=== PATIENT | female | born 1950 | race Caucasian/White ===

== ENCOUNTER 2017-01-09 16:10 | Emergency (ER) | payer MEDICARE, OTHER ==
--- NOTE | 2017-01-09 18:03 | RAD ---
INDICATION: Laceration to the bridge of the nose TECHNIQUE: 3 views of the nasal bones were obtained including lateral and Esposito views. FINDINGS: No fracture is seen. Paranasal sinuses appear clear by radiographic standards. IMPRESSION: No evidence of acute fracture.
--- NOTE | 2017-01-09 18:06 | UC ---
Epistaxis Nasal HPI - HPI Summary HPI Summary: PT WAS WALKING IN THE [facility] [employer] [facility] TODAY WHEN SHE TRIPPED ON A ROCK AND FACE PLANTED ON THE STONE PAVEMENT. NOSE IS DEVIATED TO THE LEFT. NO LOC. NO BLEEDING. - History of Current Complaint Chief Complaint: UCTrauma Stated Complaint: NOSE INJURY Time Seen by Provider: 01/09/17 17:17 Hx Obtained From: Patient Onset/Duration: Sudden Onset, Lasting Hours, Still Present Timing: Constant Severity Initially: Moderate Severity Currently: Moderate Pain Intensity: 1 Pain Scale Used: 0-10 Numeric Aggravating Factor(s): Nasal Trauma Associated Signs And Symptoms: Positive: Bruising - Allergies/Home Medications Allergies/Adverse Reactions: Allergies Allergy/AdvReac Type Severity Reaction Status Date / Time Acetaminophen [From Vicodin] Allergy Vomiting Verified 01/09/17 16:15 Codeine Allergy Vomiting Verified 01/09/17 16:15 Hydrocodone [From Vicodin] Allergy Vomiting Verified 01/09/17 16:15 Meperidine [From Demerol HCl] Allergy VOMITING Verified 01/09/17 16:15 AND CONFUSION Morphine Allergy Vomiting Verified 01/09/17 16:15 CATGUT SUTURE Allergy FLESH Uncoded 01/09/17 16:15 ERODES FROM SUTURE PMH/Surg Hx/FS Hx/Imm Hx Endocrine History: Diabetes, Hypothyroidism - Surgical History Surgical History: Yes Surgery Procedure, Year, and Place: 2006 BILATERAL KNEE REPLACEMENTS, [facility]. 1979 OSTEOCHONDROMA - [place],. 2009 PLASTIC SURGERY - EXCESSIVE SKIN REMOVAL FROM SIGNIFICANT WEIGHT LOSS, [facility]; - Family History Known Family History: Positive: Diabetes - Social History Alcohol Use: Weekly Alcohol Amount: 1-2 DRINKS/WEEK Substance Use Type: None Smoking Status (MU): Never Smoked Tobacco Have You Smoked in the Last Year: No - Immunization History Most Recent Tetanus Shot: unk Review of Systems Constitutional: Negative Skin: Bruising ENT: Other - NASAL TRAUMA, PAIN, DEFORMITY Respiratory: Negative Cardiovascular: Negative Gastrointestinal: Negative All Other Systems Reviewed And Are Negative: Yes Physical Exam Triage Information Reviewed: Yes Appearance: Well-Appearing, No Pain Distress, Well-Nourished Vital Signs: Initial Vital Signs Temp 98 F 01/09/17 16:16 Pulse 100 01/09/17 16:16 Resp 17 01/09/17 16:16 Pulse Ox 99 01/09/17 16:16 Vital Signs Reviewed: Yes Eyes: Positive: Conjunctiva Clear ENT: Positive: Hearing grossly normal, Pharynx normal, TMs normal, Other: - TENDERNESS LIMITED TO BRIDGE OF NOSE. NO SEPTAL HEMATOMA. NO OBSTRUCTION IN NARES. DEVIATION TO THE LEFT Neck: Positive: Supple Respiratory: Positive: No respiratory distress, No accessory muscle use Cardiovascular: Positive: Pulses Normal Abdomen Description: Positive: Soft Musculoskeletal: Positive: No Edema Neurological: Positive: Alert Psychological: Positive: Age Appropriate Behavior Skin: Positive: Other - BRUISING AND ABRASIONS OVER NOSE. Negative: rashes Diagnostics - Radiology NASAL BONES XRAYS Xray Interpretation: Positive (See Comments) - NONDISPLACED FRACTURE Radiology Interpretation Completed By: Radiologist Epistaxis Nasal Course/Dx - Differential Dx/Diagnosis Provider Diagnoses: NONDISPLACED NASAL FRACTURE Discharge - Discharge Plan Condition: Stable Disposition: HOME Patient Education Materials: Nasal Fracture (ED) Referrals: Parrish Saleh MD [Primary Care Provider] - If Needed Additional Instructions: XRAY CONFIRMS NASAL FRACTURE. FOLLOW-UP WITH ENT BELOW. [facility] [place] AND [address] [facility] [phone] GO TO THE ER WITHOUT FAIL IF YOU DEVELOP INABILITY TO BREATHE THROUGH YOUR NOSE , WORSENING PAIN, BLEEDING OR ANY OTHER CONCERNING SYMPTOMS.
== END 2017-01-09 18:10 | disposition home or self-care (01) ==
LOC: UCEAST 16:10
DX: S02.2XXA Fracture of nasal bones, initial encounter for closed fracture (principal); W01.0XXA Fall on same level from slipping, tripping and stumbling without subsequent striking against object, initial encounter; Y92.9 Unspecified place or not applicable; Z88.6 Allergy status to analgesic agent; Z88.5 Allergy status to narcotic agent; E11.9 Type 2 diabetes mellitus without complications
CPT/HCPCS: 70160; 99211; G0463

== ENCOUNTER 2022-04-06 14:04 | Inpatient (IN) ==
[2022-04-06] MEDS ORDERED: cefTRIAXone 1 gm/50 mL D5W 1 GM/50 ML BAG IV ONE (14:16)
[2022-04-06] MEDS ORDERED: NS 0.9% 1000 ml BAG 1,000 ML IV ONE ×2 (14:16→17:00)
[2022-04-06 14:51] LABS: PO2 Arterial 55 mmHg (80-100)
[2022-04-06 14:56] LABS: PCO2 Arterial <20 mmHg (35-45)
[2022-04-06 15:54] LABS: Hematocrit 41 % (35-47); Hemoglobin 13.6 g/dL (12.0-16.0); Mean Corpuscular HGB Conc 34 g/dL (31-36); Mean Corpuscular Hemoglobin 30 pg (27-31); Mean Corpuscular Volume 89 fL (80-97); Mean Platelet Volume 8.4 fL (7.4-10.4); Platelet Count 278 10^3/uL (150-450); Red Blood Count 4.56 10^6 /uL (3.70-4.87); Red Cell Distribution Width 15 % (10-15); White Blood Count 4.6 10^3/uL (3.5-10.8)
[2022-04-06 16:16] LABS: High Sens Troponin Baseline 67 pg/mL (<15)
[2022-04-06] MEDS ORDERED: Adenosine 3 MG/ML 2 ml VIAL (6 mg) ONE (16:18)
[2022-04-06 16:32] LABS: ALT 46 U/L (7-52); AST 58 U/L (13-39); Albumin 3.7 g/dL (3.2-5.2); Albumin/Globulin Ratio 1.2 (1-3); Alcohol, S < 13 mg/dL (<13); Alkaline Phosphatase 58 U/L (35-149); Anion Gap 20 mmol/L (2-11); Blood Urea Nitrogen 38 mg/dL (6-24); CO2 Carbon Dioxide 17 mmol/L (22-32); Calcium 11.1 mg/dL (8.6-10.3); Chloride 101 mmol/L (101-111); Creatine Kinase 1058 U/L (10-223); Globulin 3.1 g/dL (2-4); Glucose 181 mg/dL (70-100); Potassium 4.3 mmol/L (3.5-5.0); Sodium 138 mmol/L (135-145); Total Protein 6.8 g/dL (6.4-8.9); eGFR CKD-EPI 68.4 (>60)
[2022-04-06 16:40] LABS: TSH Ultra Thyroid Stim Horm 0.96 mcIU/mL (0.34-5.60)
[2022-04-06] MEDS ORDERED: Succinylcholine 200 mg VIAL 20 mg/ml 10 ml VIAL (200 mg) ONE (16:41)
[2022-04-06] MEDS ORDERED: Rocuronium 50 mg VIAL 10 mg/ml 5 ml VIAL (50 mg) ONE (16:41)
[2022-04-06] MEDS ORDERED: Propofol 10 mg/ml 100 ML BTL 100 ML ONE (16:41)
[2022-04-06] MEDS ORDERED: Etomidate 40 mg/20 ml (2 MG/ML) 20 ml VIAL (40 mg) ONE (16:50)
[2022-04-06] MEDS ORDERED: Etomidate 20 mg/10 ml 2 MG/ML 10 ml VIAL IV ONE (16:59)
[2022-04-06] MEDS ORDERED: Succinylcholine 200 mg VIAL 20 mg/ml 10 ml VIAL (200 mg) IV ONE (17:00)
[2022-04-06] MEDS: Propofol 10 mg/ml 100 ML BTL 100 ML IV SCH ×2 (17:00→22:15)
[2022-04-06] MEDS ORDERED: fentaNYL 100 mcg/2 ml 50 MCG/ML VIAL IV SLOW PU ONE (17:23)
[2022-04-06 17:27] LABS: Platelet Morphology Large; Polychromasia 1+; Toxic Granulation 1+
[2022-04-06] MEDS ORDERED: Iodixanol (CONTRAST) 320 MG/ML 100 ML SDV IV ONE (17:30)
[2022-04-06] MEDS ORDERED: Lactated Ringers 1000 ml BAG 1,000 ML IV ONE (17:30)
[2022-04-06 17:31] LABS: ABS Lymphocytes 0.4 10^3/ul (1.0-4.8); ABS Monocytes 0.2 10^3/ul (0-0.8); Lymphocyte % 8.2 %; Nucleated Red Blood Cells % 0.1
[2022-04-06] MEDS ORDERED: Dextrose 50% Syringe 50 ml 25 GM/50 ML SYRINGE IV PUSH PRN (17:34)
[2022-04-06 17:44] LABS: INR 1.38 (0.88-1.18)
[2022-04-06] MEDS ORDERED: Amiodarone IV 150 mg/3 ml VIAL ONE (17:53)
[2022-04-06] MEDS ORDERED: Digoxin IV 0.5 MG/2 ML AMP (0.25 MG/ML) ONE (17:54)
[2022-04-06] MEDS ORDERED: Digoxin IV 0.5 MG/2 ML AMP (0.25 MG/ML) IV SLOW PU ONE (17:59)
[2022-04-06 18:01] LABS: High Sensitivity Troponin 1 Hr 78 pg/mL (<15)
[2022-04-06] MEDS: Acetaminophen IV 1 GM/100ML 1,000 MG/100 ML BAG IV PRN (21:04)
[2022-04-06] MEDS: Chlorhexidine MOUTHWASH 0.12% 15 ML UDC TOPICAL SCH ×2 (21:28→22:47)
[2022-04-06] MEDS: Pantoprazole VIAL 40 MG VIAL IV SCH (21:37)
[2022-04-06] MEDS: fentaNYL INFUSION 50 mcg/mL VL 2,500 MCG/50 ML VIAL IV SCH (21:44)
[2022-04-06 21:45] LABS: Urine Appearance Clear; Urine Bilirubin 1+ (Small) (Negative); Urine Color Yellow; Urine Glucose 3+ (>=1000 mg/dL) (Negative); Urine Ketones 2+ (40mg/dL) (Negative); Urine Protein 1+ (30 mg/dL) (Negative); Urine pH 5.5 (5.0-9.0)
[2022-04-06 21:46] LABS: Urine Nitrite Negative (Negative); Urine Urobilinogen 0.2 (Negative) (Negative)
[2022-04-06 21:51] LABS: Urine Bacteria Absent (Absent); Urine Red Blood Cell Trace(0-2/hpf) (Absent); Urine Squamous Epithelial Cell Present (Absent); Urine White Blood Cell Trace(0-5/hpf) (Absent); Urine Yeast Present (Absent)
[2022-04-06] MEDS: Enoxaparin 40 MG/0.4 ML SYR SUBCUT SCH (22:24)
[2022-04-06] MEDS: Lactated Ringers 1000 ml BAG 1,000 ML IV SCH (22:42)
[2022-04-06] MEDS: Azithromycin 500 mg/250 ml NS 500 MG/250 ML BAG IVPB SCH (22:44)
[2022-04-06] MEDS: Oseltamivir SUSP ORALSYR 6 MG/ML PO SCH (23:09)
[2022-04-07 02:36] LABS: PCO2 Arterial 28 mmHg (35-45); PO2 Arterial 114 mmHg (80-100)
[2022-04-07] MEDS: Chlorhexidine MOUTHWASH 0.12% 15 ML UDC TOPICAL SCH ×6 (02:54→21:21)
[2022-04-07] MEDS: Propofol 10 mg/ml 100 ML BTL 100 ML IV SCH ×4 (04:21→20:35)
[2022-04-07 04:49] LABS: Hematocrit 34 % (35-47); Hemoglobin 11.3 g/dL (12.0-16.0); Mean Corpuscular HGB Conc 34 g/dL (31-36); Mean Corpuscular Hemoglobin 30 pg (27-31); Mean Corpuscular Volume 89 fL (80-97); Mean Platelet Volume 8.6 fL (7.4-10.4); Platelet Count 204 10^3/uL (150-450); Red Blood Count 3.78 10^6 /uL (3.70-4.87); Red Cell Distribution Width 14 % (10-15); White Blood Count 2.7 10^3/uL (3.5-10.8)
[2022-04-07 05:06] LABS: ABS Lymphocytes 0.4 10^3/ul (1.0-4.8); ABS Monocytes 0.1 10^3/ul (0-0.8); ABS Neutrophils 2.2 10^3/ul (1.5-7.7); Eosinophil % 0.1 %; Lymphocyte % 14.7 %
[2022-04-07 05:23] LABS: INR 1.34 (0.88-1.18)
[2022-04-07 05:39] LABS: Blood Urea Nitrogen 32 mg/dL (6-24); CO2 Carbon Dioxide 20 mmol/L (22-32); Calcium 9.4 mg/dL (8.6-10.3); Chloride 107 mmol/L (101-111); Glucose 132 mg/dL (70-100); Magnesium 1.7 mg/dL (1.9-2.7); Sodium 137 mmol/L (135-145); eGFR CKD-EPI 86.8 (>60)
[2022-04-07 05:44] LABS: Anion Gap 10 mmol/L (2-11)
[2022-04-07] MEDS: Acetaminophen IV 1 GM/100ML 1,000 MG/100 ML BAG IV PRN ×2 (06:11→16:42)
[2022-04-07] MEDS: Lactated Ringers 1000 ml BAG 1,000 ML IV SCH ×3 (06:12→15:38)
[2022-04-07] MEDS ORDERED: KCL 10 MEQ/50 ML IVPREMIX 10 MEQ/50 ML BAG IV ONE (08:15)
[2022-04-07] MEDS ORDERED: Perflutren Lipid Microsphere 3 ML VIAL ONE (08:35)
[2022-04-07] MEDS: Enoxaparin 40 MG/0.4 ML SYR SUBCUT SCH (08:57)
[2022-04-07] MEDS: Oseltamivir SUSP ORALSYR 6 MG/ML PO SCH ×2 (08:58→21:11)
[2022-04-07] MEDS ORDERED: Magnesium Sulfate IV 3 GM in NS 0.9% 100 ml BAG 100 ML IVPB ONE (09:00)
[2022-04-07] MEDS ORDERED: cefTRIAXone 1 gm/50 mL D5W 1 GM/50 ML BAG IV SCH (16:00)
[2022-04-07] MEDS ORDERED: cefTRIAXone 1 gm/50 mL D5W 1 GM/50 ML BAG IV ONE (17:30)
[2022-04-07] MEDS: Pantoprazole VIAL 40 MG VIAL IV SCH (17:49)
[2022-04-07] MEDS: Azithromycin 500 mg/250 ml NS 500 MG/250 ML BAG IVPB SCH (18:00)
[2022-04-07] MEDS: Enoxaparin 80 MG/0.8 ML SYR SUBCUT SCH (20:35)
[2022-04-07] MEDS ORDERED: Enoxaparin 40 MG/0.4 ML SYR SUBCUT SCH (21:00)
[2022-04-08] MEDS: Lactated Ringers 1000 ml BAG 1,000 ML IV SCH (00:25)
[2022-04-08] MEDS: Acetaminophen IV 1 GM/100ML 1,000 MG/100 ML BAG IV PRN ×3 (00:32→20:06)
[2022-04-08] MEDS ORDERED: fentaNYL 100 mcg/2 ml 50 MCG/ML VIAL IV SLOW PU ONE (00:59)
[2022-04-08] MEDS ORDERED: Furosemide 40 mg/4 ml IV VIAL ONE (01:00)
[2022-04-08] MEDS ORDERED: fentaNYL 100 mcg/2 ml 50 MCG/ML VIAL ONE (01:00)
[2022-04-08] MEDS: Furosemide 40 mg/4 ml IV VIAL IV ONE ×2 (01:06→01:07)
[2022-04-08] MEDS ORDERED: Midazolam 2 mg/2 ml VIAL 1 mg/ml 2 ml VIAL (2 mg) ONE (01:41)
[2022-04-08 02:33] LABS: Hematocrit 33 % (35-47); Mean Corpuscular HGB Conc 34 g/dL (31-36); Mean Corpuscular Hemoglobin 30 pg (27-31); Mean Corpuscular Volume 88 fL (80-97); Mean Platelet Volume 9.4 fL (7.4-10.4); Platelet Count 201 10^3/uL (150-450); Red Blood Count 3.72 10^6 /uL (3.70-4.87); Red Cell Distribution Width 14 % (10-15); White Blood Count 3.2 10^3/uL (3.5-10.8)
[2022-04-08 02:37] LABS: ABS Lymphocytes 0.5 10^3/ul (1.0-4.8); ABS Monocytes 0.1 10^3/ul (0-0.8); ABS Neutrophils 2.7 10^3/ul (1.5-7.7); Nucleated Red Blood Cells % 0.1
[2022-04-08] MEDS: Chlorhexidine MOUTHWASH 0.12% 15 ML UDC TOPICAL SCH ×6 (02:42→22:17)
[2022-04-08 02:50] LABS: Calcium 10.1 mg/dL (8.6-10.3); Magnesium 1.9 mg/dL (1.9-2.7); Potassium 3.5 mmol/L (3.5-5.0); eGFR CKD-EPI 95.5 (>60)
[2022-04-08] MEDS ORDERED: Magnesium Sulfate 2 gm BAG 2 GM/50 ML BAG IVPB ONE (02:54)
[2022-04-08] MEDS: KCL 20 MEQ/100 ML IVPREMIX 20 MEQ/100 ML BAG IV SCH ×3 (03:35→08:00)
[2022-04-08] MEDS: Propofol 10 mg/ml 100 ML BTL 100 ML IV SCH ×5 (03:38→23:48)
[2022-04-08 08:05] LABS: Hematocrit 32 % (35-47); Hemoglobin 11.3 g/dL (12.0-16.0); Mean Corpuscular HGB Conc 35 g/dL (31-36); Mean Corpuscular Hemoglobin 31 pg (27-31); Mean Corpuscular Volume 89 fL (80-97); Mean Platelet Volume 8.6 fL (7.4-10.4); Platelet Count 199 10^3/uL (150-450); Red Blood Count 3.67 10^6 /uL (3.70-4.87); Red Cell Distribution Width 15 % (10-15); White Blood Count 4.8 10^3/uL (3.5-10.8)
[2022-04-08 08:46] LABS: Blood Urea Nitrogen 23 mg/dL (6-24); CO2 Carbon Dioxide 28 mmol/L (22-32); Calcium 10.2 mg/dL (8.6-10.3); Chloride 105 mmol/L (101-111); Glucose 166 mg/dL (70-100); Magnesium 2.3 mg/dL (1.9-2.7); Sodium 140 mmol/L (135-145)
[2022-04-08] MEDS: Enoxaparin 80 MG/0.8 ML SYR SUBCUT SCH ×2 (08:52→20:06)
[2022-04-08 09:00] LABS: Anion Gap 7 mmol/L (2-11)
[2022-04-08 09:53] LABS: ABS Eosinophils 0.1 10^3/ul (0-0.6); ABS Lymphocytes 0.5 10^3/ul (1.0-4.8); ABS Neutrophils 4.2 10^3/ul (1.5-7.7); Eosinophil % 1.4 %; Nucleated Red Blood Cells % 0.1
[2022-04-08] MEDS: Oseltamivir SUSP ORALSYR 6 MG/ML PO SCH ×2 (09:55→20:06)
[2022-04-08] MEDS ORDERED: Midazolam 5 mg/5 ml VIAL 1 mg/ml 5 ml VIAL (5 mg) IV SLOW PU ONE (12:15)
[2022-04-08] MEDS ORDERED: Midazolam 5 mg/5 ml VIAL 1 mg/ml 5 ml VIAL (5 mg) ONE (12:16)
[2022-04-08] MEDS: cefTRIAXone 2 gm/50 mL D5W 2 GM/50 ML BAG IV SCH (17:09)
[2022-04-08] MEDS: Pantoprazole VIAL 40 MG VIAL IV SCH (17:11)
[2022-04-08] MEDS: Azithromycin 500 mg/250 ml NS 500 MG/250 ML BAG IVPB SCH (17:20)
[2022-04-09] MEDS: Chlorhexidine MOUTHWASH 0.12% 15 ML UDC TOPICAL SCH ×6 (02:24→21:40)
[2022-04-09 04:52] LABS: ABS Lymphocytes 0.7 10^3/ul (1.0-4.8); ABS Monocytes 0.3 10^3/ul (0-0.8); ABS Neutrophils 6.6 10^3/ul (1.5-7.7); Eosinophil % 0.5 %; Hematocrit 31 % (35-47); Hemoglobin 10.9 g/dL (12.0-16.0); Lymphocyte % 9.4 %; Mean Corpuscular HGB Conc 35 g/dL (31-36); Mean Corpuscular Hemoglobin 30 pg (27-31); Mean Corpuscular Volume 88 fL (80-97); Mean Platelet Volume 8.8 fL (7.4-10.4); Platelet Count 203 10^3/uL (150-450); Red Blood Count 3.58 10^6 /uL (3.70-4.87); Red Cell Distribution Width 15 % (10-15); White Blood Count 7.6 10^3/uL (3.5-10.8)
[2022-04-09 05:45] LABS: Magnesium 1.8 mg/dL (1.9-2.7); Potassium 4.2 mmol/L (3.5-5.0); eGFR CKD-EPI 99.5 (>60)
[2022-04-09] MEDS: Propofol 10 mg/ml 100 ML BTL 100 ML IV SCH ×3 (06:28→20:46)
[2022-04-09] MEDS ORDERED: Magnesium Sulfate 2 gm BAG 2 GM/50 ML BAG IVPB ONE (06:41)
[2022-04-09] MEDS: Enoxaparin 80 MG/0.8 ML SYR SUBCUT SCH ×2 (08:15→21:39)
[2022-04-09] MEDS: Oseltamivir SUSP ORALSYR 6 MG/ML PO SCH ×2 (08:15→22:31)
[2022-04-09] MEDS: Acetaminophen IV 1 GM/100ML 1,000 MG/100 ML BAG IV PRN ×2 (08:59→17:21)
[2022-04-09] MEDS ORDERED: NS 0.9% IVPB ONE (09:30)
[2022-04-09] MEDS ORDERED: ZOLEDRONIC ACID IVPB ONE (09:30)
[2022-04-09] MEDS ORDERED: Senna TAB 8.6 mg TAB PO PRN (10:03)
[2022-04-09] MEDS ORDERED: Magnesium Hydroxide LIQ 30 ML UDC PO PRN (10:03)
[2022-04-09] MEDS: Magnesium Hydroxide LIQ 30 ML UDC PO SCH ×3 (10:44→21:56)
[2022-04-09] MEDS: Azithromycin 500 mg/250 ml NS 500 MG/250 ML BAG IVPB SCH (17:27)
[2022-04-09] MEDS: cefTRIAXone 2 gm/50 mL D5W 2 GM/50 ML BAG IV SCH (17:29)
[2022-04-09] MEDS: Pantoprazole VIAL 40 MG VIAL IV SCH (18:08)
[2022-04-09] MEDS: Insulin GLARGINE 100 un/ml 10 ml VIAL SUBCUT SCH (21:27)
[2022-04-10] MEDS: Chlorhexidine MOUTHWASH 0.12% 15 ML UDC TOPICAL SCH ×6 (02:19→21:28)
[2022-04-10 04:02] LABS: Hematocrit 30 % (35-47); Hemoglobin 10.2 g/dL (12.0-16.0); Mean Corpuscular HGB Conc 34 g/dL (31-36); Mean Corpuscular Hemoglobin 30 pg (27-31); Mean Corpuscular Volume 88 fL (80-97); Mean Platelet Volume 8.9 fL (7.4-10.4); Platelet Count 219 10^3/uL (150-450); Red Blood Count 3.42 10^6 /uL (3.70-4.87); Red Cell Distribution Width 15 % (10-15); White Blood Count 11.1 10^3/uL (3.5-10.8)
[2022-04-10 04:27] LABS: Calcium 10.9 mg/dL (8.6-10.3); Magnesium 1.7 mg/dL (1.9-2.7); Potassium 4.2 mmol/L (3.5-5.0)
[2022-04-10] MEDS ORDERED: Magnesium Sulfate IV 3 GM in NS 0.9% 100 ml BAG 100 ML IVPB ONE (04:36)
[2022-04-10 05:15] LABS: Anisocytosis 1+; RBC Morphology Normal (Normal)
[2022-04-10 05:16] LABS: ABS Eosinophils 0.1 10^3/ul (0-0.6); ABS Lymphocytes 0.8 10^3/ul (1.0-4.8); ABS Monocytes 0.6 10^3/ul (0-0.8); ABS Neutrophils 9.6 10^3/ul (1.5-7.7); Eosinophil % 0.6 %; Lymphocyte % 7.1 %
[2022-04-10] MEDS: Propofol 10 mg/ml 100 ML BTL 100 ML IV SCH (07:22)
[2022-04-10] MEDS: Oseltamivir SUSP ORALSYR 6 MG/ML PO SCH ×2 (08:05→20:34)
[2022-04-10] MEDS: Enoxaparin 80 MG/0.8 ML SYR SUBCUT SCH ×2 (08:06→20:33)
[2022-04-10] MEDS: Acetaminophen IV 1 GM/100ML 1,000 MG/100 ML BAG IV PRN ×2 (09:07→15:26)
[2022-04-10] MEDS ORDERED: Furosemide 40 mg/4 ml IV VIAL IV ONE (10:34)
[2022-04-10] MEDS: Fluconazole 400 MG IVPREMIX 400 MG/200 ML BAG IVPB SCH (11:22)
[2022-04-10 11:36] LABS: Albumin 2.2 g/dL (3.2-5.2); Direct Bilirubin 0.1 mg/dL (0.03-0.18); Indirect Bilirubin 0.3 mg/dL (0.3-1.0); Total Bilirubin 0.4 mg/dL (0.2-1.0)
[2022-04-10 11:42] LABS: Albumin/Globulin Ratio 0.9 (1-3); Globulin 2.5 g/dL (2-4); Total Protein 4.7 g/dL (6.4-8.9)
[2022-04-10] MEDS: cefTRIAXone 2 gm/50 mL D5W 2 GM/50 ML BAG IV SCH (17:41)
[2022-04-10] MEDS: Pantoprazole VIAL 40 MG VIAL IV SCH (17:41)
[2022-04-10] MEDS: Azithromycin 500 mg/250 ml NS 500 MG/250 ML BAG IVPB SCH (17:41)
[2022-04-10] MEDS: Nystatin TOP POWDER 15 GM BTL TOPICAL SCH (20:34)
[2022-04-10] MEDS: Insulin GLARGINE 100 un/ml 10 ml VIAL SUBCUT SCH (20:47)
[2022-04-11] MEDS: Chlorhexidine MOUTHWASH 0.12% 15 ML UDC TOPICAL SCH ×6 (01:37→21:17)
[2022-04-11] MEDS: Propofol 10 mg/ml 100 ML BTL 100 ML IV SCH ×2 (02:25→14:41)
[2022-04-11 03:28] LABS: Hematocrit 28 % (35-47); Hemoglobin 9.8 g/dL (12.0-16.0); Mean Corpuscular HGB Conc 35 g/dL (31-36); Mean Corpuscular Hemoglobin 30 pg (27-31); Mean Corpuscular Volume 88 fL (80-97); Mean Platelet Volume 8.7 fL (7.4-10.4); Platelet Count 227 10^3/uL (150-450); Red Blood Count 3.23 10^6 /uL (3.70-4.87); Red Cell Distribution Width 15 % (10-15); White Blood Count 10.8 10^3/uL (3.5-10.8)
[2022-04-11] MEDS: Acetaminophen IV 1 GM/100ML 1,000 MG/100 ML BAG IV PRN ×3 (03:44→22:05)
[2022-04-11 04:05] LABS: Calcium 10.2 mg/dL (8.6-10.3); Magnesium 1.8 mg/dL (1.9-2.7); Potassium 3.9 mmol/L (3.5-5.0)
[2022-04-11 04:18] LABS: ABS Basophils 0.1 10^3/ul (0-0.2); ABS Eosinophils 0.1 10^3/ul (0-0.6); ABS Lymphocytes 1.3 10^3/ul (1.0-4.8); ABS Monocytes 0.5 10^3/ul (0-0.8); ABS Neutrophils 8.8 10^3/ul (1.5-7.7); Eosinophil % 0.6 %; Lymphocyte % 12.2 %; Nucleated Red Blood Cells % 0.1
[2022-04-11] MEDS ORDERED: KCL 20 MEQ/100 ML IVPREMIX 20 MEQ/100 ML BAG IV ONE (04:39)
[2022-04-11] MEDS ORDERED: Magnesium Sulfate 2 gm BAG 2 GM/50 ML BAG IVPB ONE (04:39)
[2022-04-11] MEDS: Enoxaparin 80 MG/0.8 ML SYR SUBCUT SCH ×2 (08:50→21:18)
[2022-04-11] MEDS: Nystatin TOP POWDER 15 GM BTL TOPICAL SCH (08:51)
[2022-04-11] MEDS: Oseltamivir SUSP ORALSYR 6 MG/ML PO SCH (08:51)
[2022-04-11] MEDS: Fluconazole 400 MG IVPREMIX 400 MG/200 ML BAG IVPB SCH (10:52)
[2022-04-11] MEDS: Cefepime 2 GM in Dextrose 2 GM/50 ML BAG IV SCH ×2 (11:28→21:27)
[2022-04-11] MEDS: fentaNYL INFUSION 50 mcg/mL VL 2,500 MCG/50 ML VIAL IV SCH (13:06)
[2022-04-11] MEDS: Pantoprazole VIAL 40 MG VIAL IV SCH (17:49)
[2022-04-11] MEDS: Insulin GLARGINE 100 un/ml 10 ml VIAL SUBCUT SCH (21:17)
[2022-04-11] MEDS: metroNIDAZOLE IV 500 MG/100ML 500 MG/100 ML BAG IVPB SCH (21:27)
[2022-04-11] MEDS: Albuterol/Ipratropium NEB.SOL (2.5/0.5 MG) 3 ML NEB.SOLN INH SCH ×2 (21:31→22:27)
[2022-04-12] MEDS: Albuterol/Ipratropium NEB.SOL (2.5/0.5 MG) 3 ML NEB.SOLN INH SCH ×6 (02:02→23:00)
[2022-04-12] MEDS: Chlorhexidine MOUTHWASH 0.12% 15 ML UDC TOPICAL SCH ×4 (02:36→13:51)
[2022-04-12] MEDS: Acetaminophen IV 1 GM/100ML 1,000 MG/100 ML BAG IV PRN ×3 (04:40→21:16)
[2022-04-12] MEDS: metroNIDAZOLE IV 500 MG/100ML 500 MG/100 ML BAG IVPB SCH ×2 (04:44→13:52)
[2022-04-12 05:00] LABS: Hematocrit 31 % (35-47); Hemoglobin 9.8 g/dL (12.0-16.0); Mean Corpuscular HGB Conc 32 g/dL (31-36); Mean Corpuscular Hemoglobin 29 pg (27-31); Mean Corpuscular Volume 91 fL (80-97); Mean Platelet Volume 8.7 fL (7.4-10.4); Platelet Count 250 10^3/uL (150-450); Red Blood Count 3.35 10^6 /uL (3.70-4.87); Red Cell Distribution Width 15 % (10-15); White Blood Count 11.6 10^3/uL (3.5-10.8)
[2022-04-12 05:47] LABS: Albumin 2.1 g/dL (3.2-5.2); Anion Gap 5 mmol/L (2-11); CO2 Carbon Dioxide 35 mmol/L (22-32); Calcium 9.4 mg/dL (8.6-10.3); Chloride 104 mmol/L (101-111); Magnesium 1.9 mg/dL (1.9-2.7); Potassium 4.3 mmol/L (3.5-5.0); Sodium 144 mmol/L (135-145)
[2022-04-12 05:52] LABS: Blood Urea Nitrogen 25 mg/dL (6-24); Globulin 2.7 g/dL (2-4); Glucose 191 mg/dL (70-100); Total Protein 4.8 g/dL (6.4-8.9); eGFR CKD-EPI 96.3 (>60)
[2022-04-12 05:53] LABS: ALT 39 U/L (7-52); AST 25 U/L (13-39); Albumin/Globulin Ratio 0.8 (1-3); Alkaline Phosphatase 86 U/L (35-149)
[2022-04-12 06:04] LABS: ABS Eosinophils 0.1 10^3/ul (0-0.6); ABS Lymphocytes 1.6 10^3/ul (1.0-4.8); ABS Monocytes 0.7 10^3/ul (0-0.8); ABS Neutrophils 9.3 10^3/ul (1.5-7.7); Eosinophil % 0.5 %; Lymphocyte % 13.6 %
[2022-04-12] MEDS: Propofol 10 mg/ml 100 ML BTL 100 ML IV SCH (07:09)
[2022-04-12] MEDS: Enoxaparin 80 MG/0.8 ML SYR SUBCUT SCH ×2 (09:05→21:03)
[2022-04-12] MEDS: Cefepime 2 GM in Dextrose 2 GM/50 ML BAG IV SCH ×2 (09:09→21:02)
[2022-04-12] MEDS: Fluconazole 400 MG IVPREMIX 400 MG/200 ML BAG IVPB SCH (12:34)
[2022-04-12] MEDS ORDERED: oxyCODONE/Acetamin 5/325 mg TAB PO PRN (14:00)
[2022-04-12] MEDS: Pantoprazole VIAL 40 MG VIAL IV SCH (16:59)
[2022-04-12] MEDS ORDERED: Ondansetron 4 mg VIAL 2 MG/ML 2 ml VIAL IV PRN (17:07)
[2022-04-12] MEDS: Insulin GLARGINE 100 un/ml 10 ml VIAL SUBCUT SCH (21:14)
[2022-04-13] MEDS: Albuterol/Ipratropium NEB.SOL (2.5/0.5 MG) 3 ML NEB.SOLN INH SCH ×2 (02:57→06:59)
[2022-04-13 05:16] LABS: Hematocrit 33 % (35-47); Hemoglobin 10.9 g/dL (12.0-16.0); Mean Corpuscular HGB Conc 33 g/dL (31-36); Mean Corpuscular Hemoglobin 30 pg (27-31); Mean Corpuscular Volume 90 fL (80-97); Mean Platelet Volume 8.8 fL (7.4-10.4); Platelet Count 277 10^3/uL (150-450); Red Blood Count 3.65 10^6 /uL (3.70-4.87); Red Cell Distribution Width 15 % (10-15); White Blood Count 10.3 10^3/uL (3.5-10.8)
[2022-04-13 05:52] LABS: ABS Eosinophils 0.1 10^3/ul (0-0.6); ABS Lymphocytes 1.3 10^3/ul (1.0-4.8); ABS Monocytes 0.4 10^3/ul (0-0.8); ABS Neutrophils 8.5 10^3/ul (1.5-7.7); Eosinophil % 0.9 %; Lymphocyte % 12.9 %
[2022-04-13 06:04] LABS: Calcium 9.4 mg/dL (8.6-10.3); Magnesium 1.9 mg/dL (1.9-2.7); Phosphorus 1.8 mg/dL (2.5-5.0); Potassium 4.1 mmol/L (3.5-5.0); eGFR CKD-EPI 101.5 (>60)
[2022-04-13] MEDS: Acetaminophen IV 1 GM/100ML 1,000 MG/100 ML BAG IV PRN ×3 (06:04→22:50)
[2022-04-13] MEDS ORDERED: Potassium Acid Phos 500 mg TAB PO ONE ×2 (06:10→10:09)
[2022-04-13] MEDS ORDERED: Magnesium Sulfate IV 1GM/100ML 1 GM/100 ML BAG IV ONE (07:21)
[2022-04-13] MEDS ORDERED: Piperacillin/Tazobac ADVAN 3.375 GM in NS 0.9% 100 ml BAG 100 ML IV ONE (07:43)
[2022-04-13] MEDS ORDERED: Vancomycin per Pharmacy 1 EA NOTE FOLLOW UP SCH (08:00)
[2022-04-13] MEDS ORDERED: Zosyn per Pharmacy NOTE FOLLOW UP SCH (08:00)
[2022-04-13] MEDS ORDERED: Vancomycin 1,250 MG in NS 0.9% 250 ml 250 ML IVPB ONE (08:15)
[2022-04-13] MEDS: Enoxaparin 80 MG/0.8 ML SYR SUBCUT SCH ×2 (10:18→22:09)
[2022-04-13] MEDS: Fluconazole 400 MG IVPREMIX 400 MG/200 ML BAG IVPB SCH (10:18)
[2022-04-13] MEDS ORDERED: Albuterol/Ipratropium NEB.SOL (2.5/0.5 MG) 3 ML NEB.SOLN INH PRN (10:50)
[2022-04-13] MEDS: ZOSYN 3.375 GM Q8H per EXTENDED INFUSION IV SCH ×2 (12:17→22:50)
[2022-04-13] MEDS: Pantoprazole VIAL 40 MG VIAL IV SCH (18:18)
[2022-04-13] MEDS: Insulin GLARGINE 100 un/ml 10 ml VIAL SUBCUT SCH (22:10)
[2022-04-13] MEDS: Vancomycin 1,250 MG in NS 0.9% 250 ml 250 ML IVPB SCH (22:50)
[2022-04-14] MEDS: ZOSYN 3.375 GM Q8H per EXTENDED INFUSION IV SCH ×3 (04:04→21:46)
[2022-04-14 04:22] LABS: ABS Eosinophils 0.1 10^3/ul (0-0.6); ABS Lymphocytes 1.3 10^3/ul (1.0-4.8); ABS Monocytes 0.4 10^3/ul (0-0.8); ABS Neutrophils 5.7 10^3/ul (1.5-7.7); Eosinophil % 1.2 %; Hematocrit 32 % (35-47); Hemoglobin 10.7 g/dL (12.0-16.0); Lymphocyte % 17.2 %; Mean Corpuscular HGB Conc 33 g/dL (31-36); Mean Corpuscular Hemoglobin 30 pg (27-31); Mean Corpuscular Volume 89 fL (80-97); Mean Platelet Volume 8.4 fL (7.4-10.4); Platelet Count 311 10^3/uL (150-450); Red Blood Count 3.61 10^6 /uL (3.70-4.87); Red Cell Distribution Width 15 % (10-15); White Blood Count 7.4 10^3/uL (3.5-10.8)
[2022-04-14 05:11] LABS: Calcium 8.9 mg/dL (8.6-10.3); Magnesium 1.9 mg/dL (1.9-2.7); Phosphorus 1.5 mg/dL (2.5-5.0); Potassium 3.8 mmol/L (3.5-5.0); eGFR CKD-EPI 102.6 (>60)
[2022-04-14] MEDS: Vancomycin 1,250 MG in NS 0.9% 250 ml 250 ML IVPB SCH ×2 (07:56→21:19)
[2022-04-14] MEDS: Enoxaparin 80 MG/0.8 ML SYR SUBCUT SCH ×2 (08:26→21:31)
[2022-04-14] MEDS: Fluconazole 400 MG IVPREMIX 400 MG/200 ML BAG IVPB SCH (11:40)
[2022-04-14] MEDS: Acetaminophen IV 1 GM/100ML 1,000 MG/100 ML BAG IV PRN (13:08)
[2022-04-14] MEDS: Pantoprazole VIAL 40 MG VIAL IV SCH (18:12)
[2022-04-14] MEDS: Insulin GLARGINE 100 un/ml 10 ml VIAL SUBCUT SCH (21:48)
[2022-04-15] MEDS: ZOSYN 3.375 GM Q8H per EXTENDED INFUSION IV SCH ×3 (06:29→20:52)
[2022-04-15 06:49] LABS: ABS Eosinophils 0.1 10^3/ul (0-0.6); ABS Lymphocytes 1.3 10^3/ul (1.0-4.8); ABS Monocytes 0.4 10^3/ul (0-0.8); Eosinophil % 1.8 %; Hematocrit 32 % (35-47); Hemoglobin 10.8 g/dL (12.0-16.0); Lymphocyte % 19.4 %; Mean Corpuscular HGB Conc 34 g/dL (31-36); Mean Corpuscular Hemoglobin 30 pg (27-31); Mean Corpuscular Volume 89 fL (80-97); Mean Platelet Volume 7.9 fL (7.4-10.4); Platelet Count 351 10^3/uL (150-450); Red Blood Count 3.61 10^6 /uL (3.70-4.87); Red Cell Distribution Width 14 % (10-15); White Blood Count 6.9 10^3/uL (3.5-10.8)
[2022-04-15] MEDS ORDERED: Vancomycin Trough Check NOTE FOLLOW UP ONE (07:30)
[2022-04-15 07:40] LABS: Calcium 8.6 mg/dL (8.6-10.3); Magnesium 1.8 mg/dL (1.9-2.7); Phosphorus 1.4 mg/dL (2.5-5.0); Potassium 3.7 mmol/L (3.5-5.0)
[2022-04-15] MEDS: Enoxaparin 80 MG/0.8 ML SYR SUBCUT SCH ×2 (07:59→20:51)
[2022-04-15] MEDS: Vancomycin 1,250 MG in NS 0.9% 250 ml 250 ML IVPB SCH (08:58)
[2022-04-15] MEDS: Fluconazole 400 MG IVPREMIX 400 MG/200 ML BAG IVPB SCH (11:55)
[2022-04-15] MEDS: Pantoprazole VIAL 40 MG VIAL IV SCH (18:05)
[2022-04-15] MEDS: Vancomycin 1,500 MG in NS 0.9% 250 ml 250 ML IVPB SCH ×2 (21:16→22:12)
[2022-04-15] MEDS: Insulin GLARGINE 100 un/ml 10 ml VIAL SUBCUT SCH (22:09)
[2022-04-16] MEDS: ZOSYN 3.375 GM Q8H per EXTENDED INFUSION IV SCH ×3 (06:49→22:58)
[2022-04-16 07:11] LABS: ABS Eosinophils 0.1 10^3/ul (0-0.6); ABS Lymphocytes 1.2 10^3/ul (1.0-4.8); ABS Monocytes 0.4 10^3/ul (0-0.8); ABS Neutrophils 4.9 10^3/ul (1.5-7.7); Eosinophil % 2.2 %; Hematocrit 32 % (35-47); Hemoglobin 10.4 g/dL (12.0-16.0); Lymphocyte % 17.5 %; Mean Corpuscular HGB Conc 33 g/dL (31-36); Mean Corpuscular Hemoglobin 30 pg (27-31); Mean Corpuscular Volume 89 fL (80-97); Mean Platelet Volume 8.1 fL (7.4-10.4); Platelet Count 400 10^3/uL (150-450); Red Blood Count 3.53 10^6 /uL (3.70-4.87); Red Cell Distribution Width 15 % (10-15); White Blood Count 6.6 10^3/uL (3.5-10.8)
[2022-04-16 07:57] LABS: Calcium 8.6 mg/dL (8.6-10.3); Magnesium 1.7 mg/dL (1.9-2.7); Phosphorus 1.4 mg/dL (2.5-5.0); Potassium 3.5 mmol/L (3.5-5.0); eGFR CKD-EPI 106.5 (>60)
[2022-04-16] MEDS: Vancomycin 1,500 MG in NS 0.9% 250 ml 250 ML IVPB SCH ×2 (09:05→20:32)
[2022-04-16] MEDS: Enoxaparin 80 MG/0.8 ML SYR SUBCUT SCH (09:05)
[2022-04-16] MEDS: Fluconazole 400 MG IVPREMIX 400 MG/200 ML BAG IVPB SCH (11:27)
[2022-04-16] MEDS ORDERED: Lidocaine 1% MPF 5 ML VIAL INJ ONE (11:39)
[2022-04-16] MEDS ORDERED: Potassium Chlor 20 meq TAB.ER PO ONE (17:34)
[2022-04-16] MEDS ORDERED: Magnesium Sulfate IV 3 GM in NS 0.9% 100 ml BAG 100 ML IVPB ONE (17:35)
[2022-04-16] MEDS: Pantoprazole VIAL 40 MG VIAL IV SCH (17:52)
[2022-04-16] MEDS: Insulin GLARGINE 100 un/ml 10 ml VIAL SUBCUT SCH (20:25)
[2022-04-17] MEDS: ZOSYN 3.375 GM Q8H per EXTENDED INFUSION IV SCH (05:16)
[2022-04-17 05:34] LABS: ABS Eosinophils 0.1 10^3/ul (0-0.6); ABS Lymphocytes 1.1 10^3/ul (1.0-4.8); ABS Monocytes 0.4 10^3/ul (0-0.8); ABS Neutrophils 5.2 10^3/ul (1.5-7.7); Eosinophil % 1.9 %; Hematocrit 33 % (35-47); Hemoglobin 10.6 g/dL (12.0-16.0); Lymphocyte % 16.2 %; Mean Corpuscular HGB Conc 32 g/dL (31-36); Mean Corpuscular Hemoglobin 30 pg (27-31); Mean Corpuscular Volume 92 fL (80-97); Mean Platelet Volume 8.4 fL (7.4-10.4); Nucleated Red Blood Cells % 0.1; Platelet Count 424 10^3/uL (150-450); Red Cell Distribution Width 15 % (10-15)
[2022-04-17 06:14] LABS: Phosphorus 1.6 mg/dL (2.5-5.0); Potassium 3.9 mmol/L (3.5-5.0); eGFR CKD-EPI 95.7 (>60)
[2022-04-17] MEDS ORDERED: Potassium Chlor 10 meq TAB PO ONE (07:20)
[2022-04-17] MEDS ORDERED: Vancomycin Trough Check NOTE FOLLOW UP ONE (07:30)
[2022-04-17] MEDS: Vancomycin 1,500 MG in NS 0.9% 250 ml 250 ML IVPB SCH (10:17)
[2022-04-17 16:03] VITALS: BP 145/81
== END 2022-04-17 14:25 | DRG 870 ==
LOC: ED 14:04 → EDHOLD 17:20 → SUATTDRO 17:20 → ICU 18:58
PROVIDERS: ADMIT Internal Medicine; ATTEND Internal Medicine

== ENCOUNTER 2022-04-17 14:09 | Inpatient (IN) ==
[2022-04-17] MEDS ORDERED: Magnesium Hydroxide LIQ 30 ML UDC PO PRN (17:25)
[2022-04-17] MEDS ORDERED: Senna TAB 8.6 mg TAB PO PRN (17:25)
[2022-04-17] MEDS ORDERED: Dextrose 50% Syringe 50 ml 25 GM/50 ML SYRINGE IV PUSH PRN (17:33)
[2022-04-17] MEDS: Insulin GLARGINE 100 un/ml 10 ml VIAL SUBCUT SCH (21:15)
[2022-04-18 07:10] LABS: ABS Eosinophils 0.1 10^3/ul (0-0.6); ABS Lymphocytes 1.5 10^3/ul (1.0-4.8); ABS Monocytes 0.4 10^3/ul (0-0.8); Hematocrit 33 % (35-47); Hemoglobin 10.3 g/dL (12.0-16.0); Lymphocyte % 20.9 %; Mean Corpuscular HGB Conc 32 g/dL (31-36); Mean Corpuscular Hemoglobin 30 pg (27-31); Mean Corpuscular Volume 93 fL (80-97); Mean Platelet Volume 8.3 fL (7.4-10.4); Platelet Count 423 10^3/uL (150-450); Red Blood Count 3.48 10^6 /uL (3.70-4.87); Red Cell Distribution Width 15 % (10-15)
[2022-04-18 07:27] LABS: Albumin 2.5 g/dL (3.2-5.2); Albumin/Globulin Ratio 0.9 (1-3); Calcium 9.2 mg/dL (8.6-10.3); Globulin 2.7 g/dL (2-4); Total Bilirubin 0.4 mg/dL (0.2-1.0); Total Protein 5.2 g/dL (6.4-8.9); eGFR CKD-EPI 97.4 (>60)
[2022-04-18] MEDS: Insulin GLARGINE 100 un/ml 10 ml VIAL SUBCUT SCH (21:22)
[2022-04-19] MEDS: Insulin GLARGINE 100 un/ml 10 ml VIAL SUBCUT SCH (20:11)
[2022-04-24 15:40] LABS: ABS Eosinophils 0.2 10^3/ul (0-0.6); ABS Lymphocytes 1.5 10^3/ul (1.0-4.8); ABS Monocytes 0.5 10^3/ul (0-0.8); ABS Neutrophils 3.9 10^3/ul (1.5-7.7); Eosinophil % 2.6 %; Hematocrit 35 % (35-47); Hemoglobin 11.2 g/dL (12.0-16.0); Mean Corpuscular HGB Conc 32 g/dL (31-36); Mean Corpuscular Hemoglobin 30 pg (27-31); Mean Corpuscular Volume 93 fL (80-97); Mean Platelet Volume 8.4 fL (7.4-10.4); Platelet Count 426 10^3/uL (150-450); Red Blood Count 3.72 10^6 /uL (3.70-4.87); Red Cell Distribution Width 17 % (10-15); White Blood Count 6.2 10^3/uL (3.5-10.8)
[2022-04-25 06:32] LABS: ABS Eosinophils 0.2 10^3/ul (0-0.6); ABS Lymphocytes 1.6 10^3/ul (1.0-4.8); ABS Monocytes 0.5 10^3/ul (0-0.8); ABS Neutrophils 3.4 10^3/ul (1.5-7.7); Eosinophil % 2.7 %; Hematocrit 32 % (35-47); Hemoglobin 10.6 g/dL (12.0-16.0); Lymphocyte % 27.8 %; Mean Corpuscular HGB Conc 33 g/dL (31-36); Mean Corpuscular Hemoglobin 30 pg (27-31); Mean Corpuscular Volume 93 fL (80-97); Mean Platelet Volume 8.4 fL (7.4-10.4); Nucleated Red Blood Cells % 0.1; Platelet Count 334 10^3/uL (150-450); Red Cell Distribution Width 17 % (10-15); White Blood Count 5.6 10^3/uL (3.5-10.8)
[2022-04-25 06:55] LABS: Albumin 2.9 g/dL (3.2-5.2); Calcium 9.7 mg/dL (8.6-10.3); Globulin 2.9 g/dL (2-4); Potassium 4.3 mmol/L (3.5-5.0); Total Bilirubin 0.4 mg/dL (0.2-1.0); Total Protein 5.8 g/dL (6.4-8.9); eGFR CKD-EPI 96.6 (>60)
[2022-04-25] MEDS ORDERED: PTO: Dulaglutide (NF) 0.75 MG/0.5 ML SYRINGE SUBCUT SCH (12:00)
[2022-04-28] MEDS: Nystatin TOP POWDER 15 GM BTL TOPICAL SCH (20:21)
[2022-04-29] MEDS: Nystatin TOP POWDER 15 GM BTL TOPICAL SCH ×2 (08:27→21:07)
[2022-04-30] MEDS: Nystatin TOP POWDER 15 GM BTL TOPICAL SCH ×2 (08:30→20:12)
[2022-05-01] MEDS: Nystatin TOP POWDER 15 GM BTL TOPICAL SCH ×2 (08:17→20:08)
[2022-05-02 05:50] VITALS: BP 123/76
[2022-05-02 07:20] LABS: ABS Eosinophils 0.2 10^3/ul (0-0.6); ABS Lymphocytes 1.7 10^3/ul (1.0-4.8); ABS Monocytes 0.4 10^3/ul (0-0.8); ABS Neutrophils 4.1 10^3/ul (1.5-7.7); Eosinophil % 2.8 %; Hematocrit 37 % (35-47); Hemoglobin 11.9 g/dL (12.0-16.0); Lymphocyte % 26.6 %; Mean Corpuscular HGB Conc 33 g/dL (31-36); Mean Corpuscular Hemoglobin 30 pg (27-31); Mean Corpuscular Volume 93 fL (80-97); Mean Platelet Volume 8.5 fL (7.4-10.4); Platelet Count 202 10^3/uL (150-450); Red Blood Count 3.91 10^6 /uL (3.70-4.87); Red Cell Distribution Width 17 % (10-15); White Blood Count 6.4 10^3/uL (3.5-10.8)
[2022-05-02 07:58] LABS: Albumin 3.4 g/dL (3.2-5.2); Albumin/Globulin Ratio 1.1 (1-3); Calcium 10.5 mg/dL (8.6-10.3); Potassium 4.3 mmol/L (3.5-5.0); Total Bilirubin 0.3 mg/dL (0.2-1.0); Total Protein 6.4 g/dL (6.4-8.9); eGFR CKD-EPI 96.6 (>60)
[2022-05-02] MEDS: Nystatin TOP POWDER 15 GM BTL TOPICAL SCH (08:47)
== END 2022-05-02 12:04 | disposition home health service (06) | DRG 945 ==
LOC: PMRU 16:44
PROVIDERS: ADMIT Physical Medicine & Rehabilitation; ATTEND Physical Medicine & Rehabilitation

== ENCOUNTER 2022-12-25 20:52 | Inpatient (IN) ==
[2022-12-25] MEDS ORDERED: Acetaminophen IV 1 GM/100ML 1,000 MG/100 ML BAG IV ONE ×2 (21:09→21:10)
[2022-12-25] MEDS ORDERED: Piperacillin/Tazobac 3.375 BAG 3.375 GM/100 ML BAG IV ONE (21:17)
[2022-12-25] MEDS ORDERED: Lactated Ringers 1000 ml BAG 2,000 ML IV ONE (21:17)
[2022-12-25 21:19] LABS: Hematocrit 43.6 % (35-45); Mean Corpuscular Hemoglobin 31.1 pg (27-33); Mean Corpuscular Hgb Conc 34.3 g/dL (31-36); Mean Corpuscular Volume 90.6 fL (80-97); Red Blood Count 4.82 10^6/uL (3.63-4.92); Red Cell Distribution Width 13.4 % (12-17)
[2022-12-25 21:22] LABS: INR 1.23 (0.83-1.13)
[2022-12-25 21:26] LABS: Albumin 3.7 g/dL (3.2-5.2); Calcium 9.9 mg/dL (8.6-10.3); Magnesium 1.4 mg/dL (1.9-2.7); Total Bilirubin 0.5 mg/dL (0.2-1.0)
[2022-12-25 21:32] LABS: Creatinine, Serum 0.79 mg/dL (0.51-0.95); Globulin 3.8 g/dL (2-4); Total Protein 7.5 g/dL (6.4-8.9); eGFR CKD-EPI 78.4 (>60)
[2022-12-25 21:35] LABS: ABS Lymphocytes 0.4 10^3/uL (1.0-4.8); ABS Monocytes 0.3 10^3/uL (0.0-0.9); ABS Neutrophils 3.4 10^3/uL (1.5-7.6); ABS Nucleated RBC 0.01 10^3/ul; Lymphocyte % 9.1 %; Mean Platelet Volume 8.5 fL (7.5-11.2); Nucleated Red Blood Cells % 0.1 /100 WBC (0.0-0.4); Platelet Count 90 10^3/uL (150-450)
[2022-12-25 21:44] LABS: Urine Appearance Clear; Urine Bilirubin Negative (Negative); Urine Blood 2+ (Negative); Urine Color Yellow; Urine Glucose 3+(>=500 mg/dL) (Negative); Urine Ketones 2+ (Negative); Urine Nitrite Negative (Negative); Urine Protein 3+(>=500 mg/dL) (Negative); Urine Specific Gravity 1.025 (1.002-1.030); Urine Urobilinogen Negative (Negative)
[2022-12-25 21:45] LABS: C Reactive Protein 163.89 mg/L (<8.01)
[2022-12-25 21:46] LABS: C Reactive Protein 156.69 mg/L (<8.01)
[2022-12-25 21:50] LABS: Urine Bacteria 1+ (Absent); Urine Red Blood Cell 2+(6-10/hpf) (Absent); Urine Squamous Epithelial Cell Present (Absent); Urine White Blood Cell Trace(0-5/hpf) (Absent)
[2022-12-25] MEDS ORDERED: Vancomycin 1,500 MG in NS 0.9% 250 ml 250 ML IVPB ONE (22:00)
[2022-12-25] MEDS ORDERED: Iodixanol (CONTRAST) 320 MG/ML 100 ML SDV IV ONE (22:23)
[2022-12-25 22:54] LABS: High Sensitivity Troponin 1 Hr 74 pg/mL (<15)
[2022-12-26] MEDS ORDERED: Magnesium Sulf 4 GM/100 ML IV 4,000 MG/100 ML BAG IVPB ONE ×2 (01:23→01:35)
[2022-12-26] MEDS ORDERED: Dextrose 50% Syringe 50 ml 25 GM/50 ML SYRINGE IV PUSH PRN (02:08)
[2022-12-26] MEDS: cefTRIAXone 1 gm/50 mL D5W 1 GM/50 ML BAG IV SCH (02:12)
[2022-12-26] MEDS: Lactated Ringers 1000 ml BAG 1,000 ML IV SCH ×2 (02:41→14:47)
[2022-12-26] MEDS: DOXYcycline 100 MG in NS 0.9% 250 ml 250 ML IVPB SCH ×2 (03:04→15:21)
[2022-12-26 03:41] LABS: TSH Ultra Thyroid Stim Horm 3.03 mcIU/mL (0.34-5.60)
[2022-12-26] MEDS ORDERED: Cyanocobalamin INJ 1,000 MCG/ML VIAL 1 ML VIAL IM ONE (05:08)
[2022-12-26 05:24] LABS: Calcium 9.5 mg/dL (8.6-10.3); Magnesium 3.5 mg/dL (1.9-2.7); Potassium 3.8 mmol/L (3.5-5.0)
[2022-12-26 05:30] LABS: Creatinine, Serum 0.74 mg/dL (0.51-0.95); eGFR CKD-EPI 84.8 (>60)
[2022-12-26 05:31] LABS: Hematocrit 38.2 % (35-45); Hemoglobin 13.4 g/dL (11.5-14.3); Mean Corpuscular Hemoglobin 31.7 pg (27-33); Mean Corpuscular Hgb Conc 34.9 g/dL (31-36); Mean Corpuscular Volume 90.7 fL (80-97); Red Blood Count 4.22 10^6/uL (3.63-4.92); Red Cell Distribution Width 13.5 % (12-17)
[2022-12-26 07:38] LABS: RBC Morphology Normal (Normal)
[2022-12-26 07:39] LABS: ABS Lymphocytes 0.4 10^3/uL (1.0-4.8); ABS Monocytes 0.4 10^3/uL (0.0-0.9); ABS Neutrophils 2.2 10^3/uL (1.5-7.6); Eosinophil % 0.1 %; Lymphocyte % 13.6 %; Mean Platelet Volume 8.3 fL (7.5-11.2); Nucleated Red Blood Cells % 0.2 /100 WBC (0.0-0.4); Platelet Count 84 10^3/uL (150-450)
[2022-12-27] MEDS: DOXYcycline 100 MG in NS 0.9% 250 ml 250 ML IVPB SCH ×2 (02:24→15:40)
[2022-12-27] MEDS: cefTRIAXone 1 gm/50 mL D5W 1 GM/50 ML BAG IV SCH (03:00)
[2022-12-27 06:30] LABS: Calcium 9.6 mg/dL (8.6-10.3); Potassium 3.9 mmol/L (3.5-5.0)
[2022-12-27 06:36] LABS: Creatinine, Serum 0.49 mg/dL (0.51-0.95); eGFR CKD-EPI 98.8 (>60)
[2022-12-27 07:44] LABS: Hemoglobin 13.8 g/dL (11.5-14.3); Mean Corpuscular Hemoglobin 31.4 pg (27-33); Mean Corpuscular Hgb Conc 34.4 g/dL (31-36); Mean Corpuscular Volume 91.1 fL (80-97); Mean Platelet Volume 9.2 fL (7.5-11.2); Platelet Count 65 10^3/uL (150-450); Red Blood Count 4.39 10^6/uL (3.63-4.92); Red Cell Distribution Width 13.4 % (12-17); White Blood Count 1.5 10^3/uL (3.8-11.8)
[2022-12-27 11:09] LABS: Hematocrit 39.5 % (35-45); Mean Corpuscular Hemoglobin 31.3 pg (27-33); Mean Corpuscular Hgb Conc 35.4 g/dL (31-36); Mean Corpuscular Volume 88.6 fL (80-97); Mean Platelet Volume 8.9 fL (7.5-11.2); Platelet Count 72 10^3/uL (150-450); Red Blood Count 4.45 10^6/uL (3.63-4.92); Red Cell Distribution Width 13.5 % (12-17); White Blood Count 1.7 10^3/uL (3.8-11.8)
[2022-12-27 12:47] LABS: RBC Morphology Normal (Normal)
[2022-12-27 12:54] LABS: ABS Lymphocytes 0.5 10^3/uL (1.0-4.8); ABS Monocytes 0.3 10^3/uL (0.0-0.9); ABS Neutrophils 0.8 10^3/uL (1.5-7.6); ABS Nucleated RBC 0.01 10^3/ul; Eosinophil % 2.2 %; Nucleated Red Blood Cells % 0.3 /100 WBC (0.0-0.4)
[2022-12-28] MEDS: cefTRIAXone 1 gm/50 mL D5W 1 GM/50 ML BAG IV SCH (02:00)
[2022-12-28] MEDS: DOXYcycline 100 MG in NS 0.9% 250 ml 250 ML IVPB SCH ×2 (02:41→16:42)
[2022-12-28 07:15] LABS: Hematocrit 37.1 % (35-45); Hemoglobin 12.9 g/dL (11.5-14.3); Mean Corpuscular Hemoglobin 31.1 pg (27-33); Mean Corpuscular Hgb Conc 34.8 g/dL (31-36); Mean Corpuscular Volume 89.4 fL (80-97); Mean Platelet Volume 10.4 fL (7.5-11.2); Platelet Count 80 10^3/uL (150-450); Red Blood Count 4.15 10^6/uL (3.63-4.92); Red Cell Distribution Width 13.2 % (12-17); White Blood Count 2.9 10^3/uL (3.8-11.8)
[2022-12-28 07:26] LABS: Calcium 10.3 mg/dL (8.6-10.3); Creatinine, Serum 0.51 mg/dL (0.51-0.95); Potassium 3.7 mmol/L (3.5-5.0); eGFR CKD-EPI 97.9 (>60)
[2022-12-28 07:47] LABS: ABS Eosinophils 0.1 10^3/uL (0.0-0.5); ABS Lymphocytes 1.5 10^3/uL (1.0-4.8); ABS Monocytes 0.4 10^3/uL (0.0-0.9); ABS Nucleated RBC 0.01 10^3/ul; Eosinophil % 4.1 %; Lymphocyte % 53.4 %; Nucleated Red Blood Cells % 0.3 /100 WBC (0.0-0.4); RBC Morphology Normal (Normal)
[2022-12-28 07:49] LABS: ABS Neutrophils 0.8 10^3/uL (1.5-7.6)
[2022-12-28 16:55] LABS: Anaplasma phagocytophilum Negative (Negative); B. miyamotoi PCR, B Positive (Negative); Babesia divergens/MO-1 Negative (Negative); Babesia ducani Negative (Negative); Ehrlichia chaffeensis Negative (Negative); Ehrlichia ewingii/canis Negative (Negative); Ehrlichia muris eauclairensis Negative (Negative)
[2022-12-29] MEDS: cefTRIAXone 1 gm/50 mL D5W 1 GM/50 ML BAG IV SCH (01:39)
[2022-12-29] MEDS: DOXYcycline 100 MG in NS 0.9% 250 ml 250 ML IVPB SCH (02:32)
[2022-12-29 10:03] VITALS: BP 128/72
== END 2022-12-29 13:50 | disposition home or self-care (01) | DRG 871 ==
LOC: EDHOLD 20:52 → ED 20:52 → SUATTDRO 12-26 01:15 → MED 12-26 07:50
PROVIDERS: ADMIT Student in an Organized Health Care Education/Training Program; ATTEND Hospitalist